=== PATIENT | female | born 1980 | race Caucasian/White ===

== ENCOUNTER 2024-05-30 11:35 | Day surgery (SDC) | payer OTHER ==
[~2024-05-30] VITALS: Ht 175.3 cm; Wt 99.8 kg
[2024-05-30 14:32] LABS: ALBUMIN 1.9 g/dL (3.4-5.0); ANION GAP 10.6 (8-16); BILIRUBIN,DIRECT 5.8 mg/dL (0.0-0.3); CARBON DIOXIDE 26.5 mmol/L (21-32); CREATININE 1.2 mg/dL (0.6-1.3); POTASSIUM 4.1 mmol/L (3.5-5.1); TOTAL BILIRUBIN 8.1 mg/dL (0.0-1.0); TOTAL PROTEIN, SERUM 6.1 g/dL (6.4-8.2)
== END 2024-05-30 14:45 | disposition home or self-care (01) ==
LOC: MDS 11:35 → MMU 11:51 → MDS 14:45
PROVIDERS: ATTEND Internal Medicine Gastroenterology
DX: K70.31 Alcoholic cirrhosis of liver with ascites (principal); F41.9 Anxiety disorder, unspecified; Z87.891 Personal history of nicotine dependence; Z86.2 Personal history of diseases of the blood and blood-forming organs and certain disorders involving the immune mechanism; Z79.899 Other long term (current) drug therapy; Z98.890 Other specified postprocedural states
CPT/HCPCS: 36415; 49082; 80051; 80076; 82565; 84520

== ENCOUNTER 2024-06-07 06:08 | Day surgery (SDC) | payer OTHER ==
[~2024-06-07] VITALS: Ht 175.3 cm; Wt 93.4 kg
== END 2024-06-07 10:08 | disposition home or self-care (01) ==
LOC: MOR 06:08 → MMU 07:15 → MOR 10:08
PROVIDERS: ATTEND Internal Medicine Gastroenterology
DX: K70.31 Alcoholic cirrhosis of liver with ascites (principal)
CPT/HCPCS: 49083; 76705; Q0092; 49082

== ENCOUNTER 2024-06-19 10:51 | Emergency (ER) | payer OTHER ==
[~2024-06-19] VITALS: Ht 175.3 cm; Wt 100.7 kg
[2024-06-19 11:03] VITALS: BP 112/52; PULSE 77; RESP 18; TEMP 98.3; O2SAT 100
[2024-06-19] MEDS: ALBUMIN HUMAN 25% 100 ML IV ONE (12:13)
[2024-06-19 16:02] VITALS: BP 100/50; PULSE 72; RESP 14; TEMP 98.3; O2SAT 99
== END 2024-06-19 16:02 | disposition home or self-care (01) ==
LOC: MED 10:51
DX: K70.31 Alcoholic cirrhosis of liver with ascites (principal)
CPT/HCPCS: 49083; 96365; 99285; P9046

== ENCOUNTER 2024-06-27 07:50 | Day surgery (SDC) | payer OTHER ==
[~2024-06-27] VITALS: Ht 175.3 cm; Wt 90.7 kg
== END 2024-06-27 12:55 | disposition home or self-care (01) ==
LOC: MMU 07:50 → MDS 07:50
PROVIDERS: ATTEND Internal Medicine Gastroenterology
DX: K70.31 Alcoholic cirrhosis of liver with ascites (principal); F32.A Depression, unspecified; F41.9 Anxiety disorder, unspecified; Z98.890 Other specified postprocedural states
CPT/HCPCS: 49083; 76705; Q0092

== ENCOUNTER 2024-07-06 07:07 | Day surgery (SDC) | payer OTHER ==
[~2024-07-06] VITALS: Ht 175.3 cm; Wt 95.3 kg
== END 2024-07-06 10:49 | disposition home or self-care (01) ==
LOC: MOR 07:07 → MMU 07:08 → MOR 10:49
PROVIDERS: ATTEND Internal Medicine Gastroenterology
DX: K70.11 Alcoholic hepatitis with ascites (principal); Z79.899 Other long term (current) drug therapy
CPT/HCPCS: 49083; 76705; C1729; Q0092